=== PATIENT | female | born 1985 | race African-American/Black ===

== ENCOUNTER 2020-07-04 20:38 | Emergency (ER) | payer SELFPAY ==
[~2020-07-04] VITALS: Ht 172.7 cm; Wt 100.0 kg
--- NOTE | 2020-07-04 20:54 | PHYS DOC ---
Past Medical History Past Medical History: Asthma, COPD, Ovarian Cyst Past Surgical History: Other Additional Past Surgical Histo: Laparoscopy for ovarian cysts. Alcohol Use: None Drug Use: None General Adult EDM: Chief Complaint: DYSPNEA/RESPIRATOY DISTRESS HPI: HPI: Patient is a 34 year old female with history of asthma who presents to the ED today complaining of shortness of breath and cough that began a week ago after she got exposed to COVID19. She works as a home health nurse. Denies any fever. She would like to be tested for COVID19. Review of Systems: Review of Systems: Constitutional: Denies fever or chills. [] Eyes: Denies change in visual acuity. [] HENT: Denies nasal congestion or sore throat. [] Respiratory: Reports cough and shortness of breath. [] Cardiovascular: Denies chest pain or edema. [] GI: Denies abdominal pain, nausea, vomiting, bloody stools or diarrhea. [] : Denies dysuria. [] Musculoskeletal: Denies back pain or joint pain. [] Integument: Denies rash. [] Neurologic: Denies headache, focal weakness or sensory changes. [] Psychiatric: Denies depression or anxiety. [] Heart Score: Risk Factors: Risk Factors: DM, Current or recent (<one month) smoker, HTN, HLP, family history of CAD, obesity. Risk Scores: Score 0 - 3: 2.5% MACE over next 6 weeks - Discharge Home Score 4 - 6: 20.3% MACE over next 6 weeks - Admit for Clinical Observation Score 7 - 10: 72.7% MACE over next 6 weeks - Early Invasive Strategies Allergies: Allergies: Allergies Coded Allergies Type Severity Reaction Last Updated Verified No Known Drug Allergies 04/21/14 No Physical Exam: PE: Constitutional: Well developed, well nourished, no acute distress, non-toxic appearance. [] HENT: Normocephalic, atraumatic, bilateral external ears normal, oropharynx moist, no oral exudates, nose normal. [] Eyes: PERRLA, EOMI, conjunctiva normal, no discharge. [] Neck: Normal range of motion, no tenderness, supple, no stridor. [] Cardiovascular:Heart rate regular rhythm, no murmur [] Lungs & Thorax: Bilateral breath sounds clear to auscultation [] Abdomen: Bowel sounds normal, soft, no tenderness, no masses, no pulsatile masses. [] Skin: Warm, dry, no erythema, no rash. [] Back: No tenderness, no CVA tenderness. [] Extremities: No tenderness, no cyanosis, no clubbing, ROM intact, no edema. [] Neurologic: Alert and oriented X 3, normal motor function, normal sensory function, no focal deficits noted. [] Psychologic: Affect normal, judgement normal, mood normal. [] EKG: EKG: [] Radiology/Procedures: Radiology/Procedures: []PROCEDURE: CHEST AP ONLY EXAM: CHEST AP ONLY 07/04/2020 8:50 PM CLINICAL INDICATION: Cough COMPARISON: Chest radiograph 04/21/2014 TECHNIQUE: AP upright view of the chest FINDINGS: The heart and mediastinum are normal. Lungs are well-expanded and clear. No consolidation, pleural effusion, or pneumothorax. Pulmonary vascularity is normal. The thoracic skeleton is intact. IMPRESSION: Normal chest radiograph. Electronically signed by: Yomaira Bush MD (07/04/2020 9:23 PM) [id number] DICTATED and SIGNED BY: YOMAIRA BUSH MD DATE: 07/04/202122 Course & Med Decision Making: Course & Med Decision Making Pertinent Labs and Imaging studies reviewed. (See chart for details) This is a 34-year-old female patient with history of asthma presenting to the ED today complaining of shortness of breath and coughing that began a week ago after she got exposed to COVID19. She is a home health nurse. She is requesting COVID19 testing which was done in the ED. She will be called with the results. Patient's O2 sats 100% on room air. Chest x-ray is negative for any acute findings. She was discharged to home. Follow-up with her own PCP in 1 to 2 weeks. Note for work provided. She already has inhalers at home for her asthma. Sander Disclaimer: Sander Disclaimer: This electronic medical record was generated, in whole or in part, using a voice recognition dictation system. Departure Departure Impression: Primary Impression: Person under investigation for COVID-19 Additional Impressions: Cough Asthma exacerbation Qualified Codes: J45.21 - Mild intermittent asthma with (acute) exacerbation Disposition: HOME, SELF-CARE Condition: STABLE Referrals: NON,STAFF (PCP) Follow-up with your doctor in 1 to 2 weeks Patient Instructions: Cough, Adult, [id number] Additional Instructions: You were evaluated in the emergency room and tested for COVID19. We will call you in the course of this week or next week with the results. In the meantime quarantine yourself until you hear from us. Follow-up with your doctor in 1 to 2 weeks. Continue breathing treatments at home. PEDRO SINGH APRN Jul 04, 2020 20:54
--- NOTE | 2020-07-04 21:25 | RAD ---
EXAM: CHEST AP ONLY 07/04/2020 8:50 PM CLINICAL INDICATION: Cough COMPARISON: Chest radiograph 04/21/2014 TECHNIQUE: AP upright view of the chest FINDINGS: The heart and mediastinum are normal. Lungs are well-expanded and clear. No consolidation, pleural effusion, or pneumothorax. Pulmonary vascularity is normal. The thoracic skeleton is intact. IMPRESSION: Normal chest radiograph. Electronically signed by: Yomaira Bush MD (07/04/2020 9:23 PM) [id number]
[2020-07-04 21:40] VITALS: BP 144/83
--- NOTE | 2020-07-08 10:29 | NUR ---
IP: Attempted to call to give COVID results, no answer. left voicemail for a call back.
--- NOTE | 2020-07-08 11:50 | NUR ---
IP: Pt returned my call and I informed her of the negative COVID test. Pt verbalized understanding.
== END 2020-07-04 21:53 | disposition home or self-care (01) ==
LOC: ER 20:38
DX: J44.9 Chronic obstructive pulmonary disease, unspecified (principal); J45.21 Mild intermittent asthma with (acute) exacerbation; Z20.828 Contact with and (suspected) exposure to other viral communicable diseases
CPT/HCPCS: 71045; 99284; U0003

== ENCOUNTER 2021-09-14 16:47 | Emergency (ER) | payer SELFPAY ==
[~2021-09-14] VITALS: Ht 170.2 cm; Wt 110.4 kg
[2021-09-14] MEDS ORDERED: IPRATRPIUM/ALBUTEROL 0.5/2.5MG 3 ML NEBU. NEB ONE (18:00)
[2021-09-14] MEDS ORDERED: predniSONE 20 MG TABLET PO ONE (18:00)
[2021-09-14] MEDS ORDERED: PRED50TA PO (18:44)
--- NOTE | 2021-09-14 18:46 | PHYS DOC ---
Past Medical History Past Medical History: Anemia, Asthma, COPD, Ovarian Cyst, Other Additional Past Medical Histor: chronic nausea 2 teratoma's Past Surgical History: Other Additional Past Surgical Histo: Laparoscopy for ovarian cysts. Smoking Status: Current Every Day Smoker Additional Information: 0.25 PPD Alcohol Use: None Drug Use: None General Adult EDM: Chief Complaint: ASTHMA HPI: HPI: Patient is a 35-year-old female presents emergency department complaining of acute asthma attack started 3 days ago. Patient reports she has been using her nebulizer and MDI as directed, reports when she gets like this she needs a steroid which seems to turn her around. Patient denies hospitalizations for asthma problems. Ports this is a normal asthma exacerbation that she experiences during weather changes in the late fall early winter time. Denies other physical concerns or physical complaints. Review of Systems: Review of Systems: 14 body systems of review of systems have been reviewed. See HPI for pertinent positives and negative responses, otherwise all other systems are negative, nonpertinent or noncontributory. Constitutional: Negative except as outlined in HPI above. Skin: Negative except as outlined in HPI above. Eyes: Negative except as outlined in HPI above. HENT: Negative except as outlined in HPI above. Respiratory: Negative except as outlined in HPI above. Cardiovascular: Negative except as outlined in HPI above. GI: Negative except as outlined in HPI above. : Negative except as outlined in HPI above. Musculoskeletal: Negative except as outlined in HPI above. Integument: Negative except as outlined in HPI above. Neurologic: Negative except as outlined in HPI above. Endocrine: Negative except as outlined in HPI above. Lymphatic: Negative except as outlined in HPI above. Psychiatric: Negative except as outlined in HPI above. Heart Score: C/O Chest Pain: No Risk Factors: Risk Factors: DM, Current or recent (<one month) smoker, HTN, HLP, family history of CAD, obesity. Risk Scores: Score 0 - 3: 2.5% MACE over next 6 weeks - Discharge Home Score 4 - 6: 20.3% MACE over next 6 weeks - Admit for Clinical Observation Score 7 - 10: 72.7% MACE over next 6 weeks - Early Invasive Strategies Current Medications: Current Medications Medications (Trade) Dose Ordered Sig/Janine Start Time Stop Time Status Last Admin Dose Admin Albuterol/ Ipratropium (Duoneb) 3 ml 1X ONCE 09/14/21 18:00 09/14/21 18:01 DC 09/14/21 17:57 3 ML Prednisone (Prednisone) 60 mg 1X ONCE 09/14/21 18:00 09/14/21 18:01 DC 09/14/21 17:50 60 MG Allergies: Allergies: Allergies Coded Allergies Type Severity Reaction Last Updated Verified No Known Drug Allergies 04/21/14 No Physical Exam: PE: Constitutional: Well developed, well nourished, no acute distress, non-toxic appearance. 35-year-old female in mild respiratory distress no audible I/E wheezing appreciated. HENT: Normocephalic, atraumatic. Eyes: Conjunctiva normal, no discharge. Neck: Normal range of motion, no stridor. Cardiovascular: No cyanosis appreciated, distal cap refill less than 2 seconds. Lungs & Thorax: Patient is in no respiratory distress, no audible adventitious lung sounds appreciated. I/E wheezing appreciated throughout lung duncan for auscultation. No accessory muscle use for work of breathing appreciated. Abdomen: Nontender, no abnormalities noted. Skin: Warm, dry, no erythema, no rash. Back: No tenderness, no deformities. Extremities: No tenderness, no cyanosis, no clubbing, ROM intact, no edema. Neurologic: Alert and oriented X 3, normal motor function, normal sensory function, no focal deficits noted. Psychologic: Affect normal, judgement normal, mood normal. Current Patient Data: Labs: Laboratory Tests Test 09/14/21 17:41 POC Urine HCG, Qualitative Hcg negative (Negative) Vital Signs: Vital Signs Date Time Temp Pulse Resp B/P (MAP) Pulse Ox O2 Delivery O2 Flow Rate FiO2 09/14/21 17:59 100 Room Air 09/14/21 17:21 98.3 75 20 135/82 (99) 98.3 EKG: EKG: [] Radiology/Procedures: Radiology/Procedures: [] Course & Med Decision Making: Course & Med Decision Making Pertinent Labs and Imaging studies reviewed. (See chart for details) 35-year-old female, vital signs reviewed, presents emergency department concerning asthma exacerbation. Patient in very mild respiratory asthma exacerbation, will obtain urine test prior to proceeding with treatment. Patient's urine negative for . Order p.o. prednisone DuoNeb treatment and reevaluate after period of time. Upon reevaluation patient, patient is in no respiratory distress, states she feels much better now, lung sounds clear to auscultate all lung duncan, patient is nontoxic and is not hypoxic is not tachypneic. Will prescribe oral prednisone regimen. Discussed with patient return to ER precautions or concerns, follow-up primary care for ongoing asthma management, patient is amenable to and gave verbal understanding of discharge home instructions. Thank you for visiting our Emergency Department. It was a pleasure taking care of you today in the emergency department and we appreciate you trusting us with your care. If any additional problems come up don't hesitate to return to visit us. Please follow up with your primary care provider so they can plan additional care if needed and know about the problem that you had. If symptoms worsen come back to the Emergency Department. Any concerning symptoms that start such as chest pain, shortness of air, weakness or numbness on one side of the body, running high fevers or any other concerning symptoms return to the ER. Dragon Disclaimer: Dragon Disclaimer: This electronic medical record was generated, in whole or in part, using a voice recognition dictation system. Departure Departure Impression: Primary Impression: Asthma exacerbation Qualified Codes: J45.21 - Mild intermittent asthma with (acute) exacerbation Disposition: 01 HOME / SELF CARE / HOMELESS Condition: GOOD Referrals: NO PCP (PCP) [facility] Patient Instructions: Asthma, Adult Additional Instructions: You were seen today in the emergency department for an asthma attack, you were given a treatment of albuterol/ipratropium bromide nebulizer treatment. You are also given 60 mg of prednisone tablets orally. You reported that this helped you, your were no longer wheezing upon arrival reevaluation. I am prescribing you a prednisone regimen, please take as directed until complete. Follow-up with your primary care physician for ongoing asthma problems, return to the emergency department for worsening symptoms or other concerns. Thank you for visiting our Emergency Department. It was a pleasure taking care of you today in the emergency department and we appreciate you trusting us with your care. If any additional problems come up don't hesitate to return to visit us. Please follow up with your primary care provider so they can plan additional care if needed and know about the problem that you had. If symptoms worsen come back to the Emergency Department. Any concerning symptoms that start such as chest pain, shortness of air, weakness or numbness on one side of the body, running high fevers or any other concerning symptoms return to the ER. Scripts Prednisone (PREDNISONE) 50 Mg Tablet 1 TAB PO DAILY for asthma, #5 TAB 0 Refills Prov: KENIA SIERRA APRN 09/14/21 KENIA SIERRA APRN Sep 14, 2021 18:46
[2021-09-14 18:51] VITALS: BP 128/79
== END 2021-09-14 18:51 | disposition home or self-care (01) ==
LOC: ER 16:47
DX: J44.9 Chronic obstructive pulmonary disease, unspecified (principal); J45.21 Mild intermittent asthma with (acute) exacerbation; F17.200 Nicotine dependence, unspecified, uncomplicated
CPT/HCPCS: 81025; 94640; 99283; J7512

== ENCOUNTER 2021-09-20 10:43 | Emergency (ER) | payer SELFPAY ==
[~2021-09-20] VITALS: Ht 167.6 cm; Wt 92.0 kg
[~2021-09-20 10:43] MED LIST: PRED50TA PO
--- NOTE | 2021-09-20 11:19 | PHYS DOC ---
Past Medical History Past Medical History: Anemia, Asthma, COPD, Ovarian Cyst, Other Additional Past Medical Histor: chronic nausea 2 teratoma's Past Surgical History: Other Additional Past Surgical Histo: Laparoscopy for ovarian cysts. Smoking Status: Current Every Day Smoker Alcohol Use: Occasionally Drug Use: None Adult General Chief Complaint Chief Complaint: SYNCOPE HPI HPI The patient is a 35-year-old female who is otherwise healthy. She is a smoker. She has what sounds like a predisposition to vasovagal syncope with numerous episodes of "feeling hot and then passing out" in the past, with negative emergency department work-ups previously per her report. She states she has not had an episode like this, however, in a couple of years. Patient presents for evaluation of an episode in which she suddenly felt hot and lightheaded and then passed out. She was getting ready to leave the house and had just dressed and was walking from her bedroom into another room when she had onset of the abovedescribe symptoms. No associated shortness of breath or chest pain. She states she passed out and woke up on the floor immediately afterwards. States the episode overall was identical to those that she has had any number of times in the past. Denies hitting or hurting any part of her body during the episode. Denies feeling poorly before onset of symptoms. Denies fevers, nausea or vomiting, headache, focal or lateralizing weakness, numbness or tingling, neck stiffness/pain/meningismus, vision changes, upper respiratory congestion/rhinorrhea, cough, sore throat, shortness of breath or chest pain of any kind as above, abdominal pain of any kind, flank pain, midline back pain, dysuria, hematuria, polyuria or oliguria, unusual vaginal discharge or bleeding, changes in bowel habits. Patient is alert and pleasantly and appropriately interactive, oriented x4 and in absolutely no acute distress with appropriate vital signs, ambulatory with a narrow, steady gait in the emergency department. Review of Systems Review of Systems A 12 point review of systems was completed and was negative except where noted in HPI above. Current Medications Current Medications Current Medications Medications (Trade) Dose Ordered Sig/Janine Start Time Stop Time Status Last Admin Dose Admin Sodium Chloride 1,000 ml @ 1,000 mls/hr 1X ONCE 09/20/21 11:30 09/20/21 12:29 DC 09/20/21 11:30 1,000 MLS/HR Allergies Allergies Allergies Coded Allergies Type Severity Reaction Last Updated Verified No Known Drug Allergies 09/20/21 No Physical Exam Physical Exam 35-year-old female appearing nontoxic and in no acute distress. Head is normocephalic and atraumatic. Neck is supple and nontender. Oropharynx is moist. Lungs are clear to auscultation at all stations. There is a normal S1 and S2 without rubs or gallops and capillary refill is appropriate, less than 2 seconds globally. Abdomen is soft, nontender and nondistended. Skin is warm and dry without cyanosis, clubbing or edema. Psychiatrically, the patient demonstrates appropriate mood and affect and is alert. Evaluation of the extremities reveals BUEs and BLEs neurovascularly intact distally with strength out of 5, sensation intact light touch in all nerve distributions, capillary refill less than 2 seconds, hands and feet warm and well-perfused. No dependent peripheral edema distally. No calf tenderness or swelling bilaterally. Homans test is negative bilaterally. Neurologically, cranial nerves II through XII are intact and there are no lateralizing deficits seen. Speech is normal. Language is normal. Coordination is normal. There is no dysmetria with [id number]-[id number] or dilz-bn-pwmg bilaterally. Strength is 5 out of 5 in all joints of bilateral upper and lower extremities. Sensation is intact light touch in bilateral upper and lower extremities. Patient ambulates with a narrow, steady, non-ataxic gait here in the emergency department and is alert and oriented x4. Current Patient Data Vital Signs Vital Signs Date Time Temp Pulse Resp B/P (MAP) Pulse Ox O2 Delivery O2 Flow Rate FiO2 09/20/21 12:15 62 15 134/72 (92) 97 Room Air 09/20/21 11:01 98.5 98.5 Lab Values Laboratory Tests Test 09/20/21 10:54 09/20/21 11:55 Urine Test Negative (NEG) White Blood Count 7.5 x10^3/uL (4.0-11.0) Red Blood Count 4.16 x10^6/uL (3.50-5.40) Hemoglobin 13.4 g/dL (12.0-15.5) Hematocrit 39.7 % (36.0-47.0) Mean Corpuscular Volume 95 fL (79-100) Mean Corpuscular Hemoglobin 32 pg (25-35) Mean Corpuscular Hemoglobin Concent 34 g/dL (31-37) Red Cell Distribution Width 12.3 % (11.5-14.5) Platelet Count 334 x10^3/uL (140-400) Neutrophils (%) (Auto) 61 % (31-73) Lymphocytes (%) (Auto) 31 % (24-48) Monocytes (%) (Auto) 6 % (0-9) Eosinophils (%) (Auto) 1 % (0-3) Basophils (%) (Auto) 1 % (0-3) Neutrophils # (Auto) 4.5 x10^3/uL (1.8-7.7) Lymphocytes # (Auto) 2.3 x10^3/uL (1.0-4.8) Monocytes # (Auto) 0.5 x10^3/uL (0.0-1.1) Eosinophils # (Auto) 0.1 x10^3/uL (0.0-0.7) Basophils # (Auto) 0.1 x10^3/uL (0.0-0.2) Sodium Level 139 mmol/L (136-145) Potassium Level 3.7 mmol/L (3.5-5.1) Chloride Level 103 mmol/L (98-107) Carbon Dioxide Level 23 mmol/L (21-32) Anion Gap 13 (6-14) Blood Urea Nitrogen 8 mg/dL (7-20) Creatinine 0.6 mg/dL (0.6-1.0) Estimated GFR (Cockcroft-Gault) 139.3 BUN/Creatinine Ratio 13 (6-20) Glucose Level 82 mg/dL (70-99) Calcium Level 8.6 mg/dL (8.5-10.1) Total Bilirubin 0.3 mg/dL (0.2-1.0) Aspartate Amino Transferase (AST) 17 U/L (15-37) Alanine Aminotransferase (ALT) 20 U/L (14-59) Alkaline Phosphatase 47 U/L (46-116) Troponin I High Sensitivity 4 ng/L (4-50) Total Protein 6.9 g/dL (6.4-8.2) Albumin 3.3 g/dL (3.4-5.0) L Albumin/Globulin Ratio 0.9 (1.0-1.7) L Laboratory Tests 09/20/21 11:55 Laboratory Tests 09/20/21 11:55 EKG EKG Sinus rhythm, rate 67, no acute ST elevation or depression, QRS 94, QTc 451, EP interpretation. Baseline wander moderately limits interpretation. Radiology/Procedures Radiology/Procedures Study: XR CHEST 1V Indication: Syncope. Comparison: None. Findings: The cardiomediastinal silhouette and morris are within normal limits. No localized airspace opacity, pleural effusion or pneumothorax. Impression: No acute radiographic abnormality of the chest. Electronically signed by: EARLENE POND MD (09/20/2021 11:39 AM) [id number] DICTATED and SIGNED BY: EARLENE POND MD DATE: 09/20/21 [id number] Course & Med Decision Making Course & Med Decision Making Well-appearing 35-year-old female with what sounds like a longstanding predisposition to vasovagal symptoms, with repeated negative evaluations in the past, presenting after what sounds like a vasovagal episode. Vital signs and clinical examination are reassuring and neurologic examination is nonfocal. Labs, EKG and chest x-ray are nonacute. Patient asymptomatic and feels well after fluid bolus. Ambulatory without difficulty here in the emergency departme nt. In view of reassuring work-up and asymptomatic young patient, will discharge home to follow-up closely with primary care. Given recurrent apparent vasovagal spells in the past will refer to cardiology clinic for close follow-up as well. Patient understands that if she feels worse instead of better or develops other new symptoms of concern that she should return to the emergency department immediately for reevaluation. All questions were answered. Dragon Disclaimer Dragon Disclaimer This electronic medical record was generated, in whole or in part, using a voice recognition dictation system. Departure Departure Impression: Primary Impression: Vasovagal syncope Disposition: HOME / SELF CARE / HOMELESS Condition: GOOD Referrals: MARGARET CARR MD Patient Instructions: Syncope Additional Instructions: Follow-up very closely with your primary care doctor in the office in the next 2 to 4 days for a reevaluation of your symptoms and to discussion of next best steps in care. Drink plenty of fluids to stay hydrated and get plenty of rest. As we discussed, we are referring you to Dr. Carr of [place] [facility], a heart doctor who can evaluate you to make sure that no further heart testing is needed given your recurrent problems with passing out spells in the past. Return to the emergency department right away for worsening symptoms of any kind or with any other new symptoms of concern RANDELL KHALIL MD Sep 20, 2021 11:19
[2021-09-20 11:26] LABS: U PREG PATIENT NEGATIVE (NEG)
[2021-09-20] MEDS ORDERED: IV NORMAL SALINE 1000ML BAG 1,000 ML IV ONE (11:30)
--- NOTE | 2021-09-20 11:42 | RAD ---
Study: XR CHEST 1V Indication: Syncope. Comparison: None. Findings: The cardiomediastinal silhouette and morris are within normal limits. No localized airspace opacity, pl eural effusion or pneumothorax. Impression: No acute radiographic abnormality of the chest. Electronically signed by: EARLENE POND MD (09/20/2021 11:39 AM) [id number]
[2021-09-20 12:09] LABS: BASO # 0.1 x10^3/uL (0.0-0.2); BASO % 1 % (0-3); EOS # 0.1 x10^3/uL (0.0-0.7); EOS % 1 % (0-3); HEMATOCRIT 39.7 % (36.0-47.0); HEMOGLOBIN 13.4 g/dL (12.0-15.5); LYMPH # 2.3 x10^3/uL (1.0-4.8); LYMPH % 31 % (24-48); MEAN CORPUSCULAR HEMOGLOBIN 32 pg (25-35); MEAN CORPUSCULAR HGB CONC 34 g/dL (31-37); MEAN CORPUSCULAR VOLUME 95 fL (79-100); MONO # 0.5 x10^3/uL (0.0-1.1); MONO % 6 % (0-9); NEUT # 4.5 x10^3/uL (1.8-7.7); NEUT % 61 % (31-73); PLATELET COUNT 334 x10^3/uL (140-400); RED BLOOD COUNT 4.16 x10^6/uL (3.50-5.40); RED CELL DISTRIBUTION WIDTH 12.3 % (11.5-14.5); WHITE BLOOD COUNT 7.5 x10^3/uL (4.0-11.0)
[2021-09-20 12:15] VITALS: BP 134/72
[2021-09-20 12:17] LABS: CALCIUM 8.6 mg/dL (8.5-10.1); CREATININE 0.6 mg/dL (0.6-1.0); GFR 139.3; POTASSIUM 3.7 mmol/L (3.5-5.1)
[2021-09-20 12:22] LABS: ALBUMIN 3.3 g/dL (3.4-5.0); ALBUMIN/GLOBULIN RATIO 0.9 (1.0-1.7); TOTAL BILIRUBIN 0.3 mg/dL (0.2-1.0); TOTAL PROTEIN 6.9 g/dL (6.4-8.2)
--- NOTE | 2021-09-21 03:37 | EKG ---
[facility] [address] [place] [address] Test Date: 2021-09-20 Test Time: 10:58:03 Pat Name: LEILA NAVA Department: Room: Gender: F Fry Cook: : 1985 Requested By: RANDELL KHALIL Order Number: [id number] Reading MD: Measurements Intervals [place] Rate: 67 P: CT: QRS: -29 QRSD: 94 T: 24 QT: 424 QTc: 451 Interpretive Statements IRREGULAR RHYTHM, NO P-WAVE FOUND LEFTWARD AXIS OTHERWISE NORMAL ECG RI6.02 No previous ECG available for comparison
== END 2021-09-20 13:28 | disposition home or self-care (01) ==
LOC: ER 10:43
DX: R55 Syncope and collapse (principal); R42 Dizziness and giddiness; J44.9 Chronic obstructive pulmonary disease, unspecified; F17.200 Nicotine dependence, unspecified, uncomplicated; Z86.2 Personal history of diseases of the blood and blood-forming organs and certain disorders involving the immune mechanism
CPT/HCPCS: 36415; 71045; 80053; 81025; 84484; 85025; 93005; 96360; 96361; 99285; J7030